=== PATIENT | female | born 1955 | race Asian ===

== ENCOUNTER 2023-06-02 07:15 | Day surgery (SDC) | payer MEDICARE, OTHER, SELFPAY ==
[2023-06-02 07:36] VITALS: BMI 22.4
[2023-06-02 07:46] VITALS: BP 158/78; PULSE 87; RESP 15; TEMP 36; O2SAT 100
[2023-06-02] MEDS: LACTATED RINGERS 1,000 ML 42 ML IV (07:59)
--- NOTE | 2023-06-02 09:18 | P.HP_ITS ---
History of Present Illness History of Present Illness Date Patient Seen: 06/02/23 Time Patient Seen: 09:18 Chief complaint: Colonoscopy Narrative: Ms. 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 Brisk colonoscopy was done 12 or 13 years ago on [facility]. She has no family history of colon cancer and no symptoms that are concerning to her. She is very anxious because she read a story about a [place] nurse who had a colon oscopy and then at [facility]. She does not recall any problems with her 1st colonoscopy or the prep she had no recollection of polyps. At this time she has no further questions and does want to proceed. [facility] Social History household members: spouse Smoking Status: Never smoker alcohol intake: current Meds Home Medications and Allergies Home Medications Medication Instructions Recorded Confirmed Type sodium,potassium,mag sulfates 17.5 See Rx Instructions PO .COMPLEX 05/02/23 06/02/23 Rx gram-3.13 gram-1.6 gram oral soln #354 mL (Suprep Bowel Prep Kit) calcium 600 mg capsule 1,200 mg PO DAILY 06/02/23 06/02/23 History loratadine 10 mg tablet 10 mg PO DAILY 06/02/23 06/02/23 History losartan 50 mg tablet 50 mg PO DAILY 06/02/23 06/02/23 History Allergies Allergy/AdvReac Type Severity Reaction Status Date / Time No Known Drug Allergies Allergy Verified 06/02/23 07:35 Exam Vital Signs (past 8 hours): - 06/02/23 07:46 Temperature 96.8 F L Pulse Rate 87 Respiratory Rate 15 Blood Pressure 158/78 H Pulse Oximetry 100 Oxygen Delivery Method Room Air Oxygen Delivery Method Room Air Const General: cooperative, healthy appearing, comfortable and anxious (A little bit) HENMT Head: normal to inspection Eyes General: appearance normal, both eyes and all related structures Neck Neck: normal visual inspection Resp Effort & Inspection: normal respiratory effort and able to speak in complete sentences GI Palpation: soft and No tender Extrem General: normal to inspection Assessment & Plan Assessment and plan (1) Screening for colon cancer: Status: Acute Assessment & Plan narrative: Presents today for screening colonoscopy I discussed the risks benefits and alternatives including but not limited to perforation of the colon and an incomplete exam she fully understands these risks and would like to proceed.
[2023-06-02 10:05] VITALS: BP 108/64; PULSE 68; RESP 21; TEMP 36; O2SAT 100
[2023-06-02 10:08] VITALS: BP 96/45; PULSE 76; RESP 21; O2SAT 100
[2023-06-02 10:13] VITALS: BP 102/55; PULSE 75; RESP 22; TEMP 36.8; O2SAT 100
[2023-06-02 10:17] VITALS: BP 103/54; PULSE 76; RESP 21; O2SAT 100
--- NOTE | 2023-06-02 12:00 | PM.OP.COLON ---
Operative Date/Time/Diagnoses Date of procedure: 06/02/23 Time of procedure: 12:00 Pre-op diagnosis: Screening for colon cancer no family history. Post-op diagnosis: same Procedure & Clinicians Study performed: Colonoscopy Indications: Colon cancer screening, no family history Surgeon: Minnie Mendoza Procedure Notes Procedure in detail: Patient was taken to the endoscopy suite and placed in a left lateral decubitus position. A time-out was performed. With the help of anesthesiologist conscious sedation was induced and monitored throughout the case. A digital rectal exam was performed and there were no masses or strictures. The colonoscope was introduced into the anal canal and advanced through to the cecum. A photograph of the appendiceal orifice was obtained. The bowel prep was good [place] bowel prep score of 2. The scope was then withdrawn for a total of 17 minutes and no polyps were seen. There were a few right-sided diverticula and some scattered sigmoid diverticula. These were incidentally seen and are relatively normal finding for this patient's age. The scope was then withdrawn through the anal canal and normal internal hemorrhoidal piles were seen. Findings: divertiulosis Post-procedure Recommendations: Colonoscopy in 10 years Plan for aftercare: No polyps were seen the prep was good as long as you develop any symptoms and no one in your family is diagnosed with colon cancer you can follow-up with your next screening colonoscopy in 10 years. Disposition: PACU
== END 2023-06-02 10:23 | disposition home or self-care (01) ==
PROVIDERS: PCP Nurse Practitioner Family; Referring Provider Surgery; Visit Provider Surgery
PROC: 0DJD8ZZ Inspection of Lower Intestinal Tract, Via Natural or Artificial Opening Endoscopic (ICD-10-PCS; CPT 45378; principal; 2023-06-02 08:30)
DX: Z12.11 Encounter for screening for malignant neoplasm of colon (principal); K57.30 Diverticulosis of large intestine without perforation or abscess without bleeding
CPT/HCPCS: G0121; J2704